=== PATIENT | female | born 1990 | race American Indian/Alaskan Native ===

== ENCOUNTER 2021-10-03 02:32 | Emergency (ER) | payer OTHER ==
[~2021-10-03] VITALS: Ht 177.8 cm; Wt 70.3 kg
[2021-10-03] MEDS ORDERED: ONDANSETRON ODT8 MG PO (03:59)
== END 2021-10-03 04:59 | disposition home or self-care (01) ==
LOC: ED 02:32
DX: K52.9 Noninfective gastroenteritis and colitis, unspecified (principal)
CPT/HCPCS: 80053; 81001; 83735; 84703; 85025; 96374; 99284-25; A9270; J2405; J7030

== ENCOUNTER 2024-06-28 21:25 | Emergency (ER) | payer BC, OTHER ==
[~2024-06-28] VITALS: Ht 180.3 cm; Wt 82.4 kg
[~2024-06-28 21:25] MED LIST: ONDANSETRON ODT8 MG PO
[2024-06-28 21:57] LABS: BILIRUBIN, URINE NEGATIVE (negative); BLOOD/HGB, URINE SMALL (Negative); KETONE, URINE NEGATIVE (Negative); LEUK ESTERASE, URINE NEGATIVE (negative); NITRITE, URINE NEGATIVE (negative)
[2024-06-28 22:02] LABS: EPITHELIAL CELLS, URINE SQUAMOUS 1+ /lpf (0-1+)
[2024-06-28 22:03] LABS: BACTERIA, URINE RARE /hpf (negative); CASTS, URINE NONE SEEN \\lpf; COLLECTION TYPE, URINE CLEAN CATCH; CRYSTALS, URINE NONE SEEN (0-1+); REFLEX CULTURE, URINE No (No)
[2024-06-28 22:20] VITALS: BP 116/74
== END 2024-06-28 22:20 | disposition left against medical advice (07) ==
LOC: ED 21:25
PROVIDERS: Family Medicine
DX: R10.9 Unspecified abdominal pain (principal); R35.0 Frequency of micturition; Z53.21 Procedure and treatment not carried out due to patient leaving prior to being seen by health care provider
CPT/HCPCS: 81001; 84703